=== PATIENT | male | born 1995 ===

== ENCOUNTER 2024-11-09 12:31 | Inpatient (IN) | payer OTHER ==
[2024-11-09 13:17] VITALS: BMI 29.5
[2024-11-09] MEDS ORDERED: BISMUTH SUBSALICYLATE 262 MG/15 ML BTL PO PRN (13:44)
[2024-11-09] MEDS ORDERED: BENZOCAINE/MENTHOL (CHLORASEPTIC ) LOZENGE MM PRN (13:44)
[2024-11-09] MEDS ORDERED: DICYCLOMINE HCL 10 MG CAPSULE PO PRN (13:44)
[2024-11-09] MEDS ORDERED: IBUPROFEN 600 MG TABLET (FP) PO PRN (13:44)
[2024-11-09] MEDS ORDERED: LOPERAMIDE HCL 2 MG CAPSULE PO PRN (13:44)
[2024-11-09] MEDS ORDERED: guaiFENesin 600 MG TABLET.ER (FP) PO PRN (13:44)
[2024-11-09] MEDS ORDERED: MAGNESIUM HYDROX 2400MG/30ML ORAL SUSPENSION 30 ML CUP PO PRN (13:44)
[2024-11-09] MEDS ORDERED: IBUPROFEN 400 MG TABLET (FP) PO PRN (13:44)
[2024-11-09] MEDS ORDERED: NALOXONE (NARCAN) HCL 4 MG/0.1 ML SPRAY NS PRN (13:44)
[2024-11-09] MEDS ORDERED: MAG HYDROX/AL HYDROX/SIMETH 30 ML UNIT-DOSE CUP PO PRN (13:44)
[2024-11-09] MEDS ORDERED: BENZONATATE 200 MG CAPSULE PO PRN (13:44)
[2024-11-09] MEDS ORDERED: ACETAMINOPHEN 325 MG TABLET (FP) PO PRN (13:44)
[2024-11-09] MEDS ORDERED: POLYETHYLENE GLYCOL (HEALTHYLAX) 3350 17 GM PACKET PO PRN (13:44)
[2024-11-09] MEDS ORDERED: LORazepam 1 MG TABLET PO PRN (13:51)
[2024-11-09] MEDS ORDERED: chlordiazePOXIDE HCL 25 MG CAPSULE PO PRN (14:03)
[2024-11-09] MEDS ORDERED: LORazepam 2 MG TABLET PO SCH (17:00)
[2024-11-09] MEDS: chlordiazePOXIDE HCL 25 MG CAPSULE PO SCH (17:47)
[2024-11-09] MEDS: NALTREXONE HCL 50 MG TABLET PO ONE (17:47)
[2024-11-09] MEDS: ONDANSETRON *ODT* 4 MG TABLET SL PRN (20:17)
[2024-11-09] MEDS: MELATONIN 5 MG TABLETS PO SCH (22:25)
[2024-11-09] MEDS: THIAMINE 100 MG TABLET PO SCH (22:25)
[2024-11-09] MEDS: hydrOXYzine PAMOATE 25 MG CAPSULE (FP) PO PRN (22:26)
[2024-11-09] MEDS: METHOCARBAMOL 500 MG TABLET PO PRN (22:26)
[2024-11-10] MEDS: PRENATAL VITAMINS W/ FOLIC ACID TABLET (FP) PO SCH (10:17)
[2024-11-10] MEDS: NALTREXONE HCL 50 MG TABLET PO SCH (10:17)
[2024-11-10 11:09] LABS: POTASSIUM 3.7 mmol/L (3.5-5.1)
[2024-11-10 11:10] LABS: HEMATOCRIT 42.1 % (35.4-49); HEMOGLOBIN 14.1 GM/dL (11.7-16.9); MCH 33.2 pg (25.7-33.7); MCHC 33.4 g/dl (32.0-35.9); MEAN CELL VOLUME 99.4 fl (80-96); MEAN PLT VOLUME 8.6 fl (7.5-11.1); PLATELET COUNT 305 10^3/uL (134-434); RBC 4.23 M/mm3 (4.00-5.60); RDW 14.3 % (11.9-15.9); WHITE BLOOD COUNT 10.8 K/mm3 (4.0-10.0)
[2024-11-10 11:12] LABS: CALCIUM 9.4 mg/dL (8.5-10.1)
[2024-11-10 11:13] LABS: ALBUMIN 4.5 g/dl (3.4-5.0); BLOOD UREA NITROGEN 8.5 mg/dL (7-18)
[2024-11-10 11:16] LABS: CREATININE 0.8 mg/dL (0.55-1.3)
[2024-11-10 11:17] LABS: BILIRUBIN,TOTAL 1.8 mg/dL (0.2-1); TOT PROT 8.2 g/dl (6.4-8.2)
[2024-11-10] MEDS: MELATONIN 5 MG TABLETS PO SCH (22:10)
[2024-11-11] MEDS ORDERED: LORazepam 1 MG TABLET PO SCH (05:00)
[2024-11-11] MEDS: chlordiazePOXIDE HCL 25 MG CAPSULE PO SCH (05:55)
[2024-11-12] MEDS ORDERED: LORazepam 0.5 MG TABLET PO PRN
[2024-11-12] MEDS ORDERED: chlordiazePOXIDE HCL 10 MG CAPSULE PO PRN
[2024-11-12] MEDS ORDERED: LORazepam 0.5 MG TABLET PO SCH (05:00)
[2024-11-12] MEDS: chlordiazePOXIDE HCL 10 MG CAPSULE PO SCH (05:50)
[2024-11-13] MEDS ORDERED: LORazepam 0.5 MG TABLET PO ONE (05:00)
[2024-11-13] MEDS: chlordiazePOXIDE HCL 10 MG CAPSULE PO SCH (05:48)
[2024-11-13 07:03] VITALS: TEMP 97.6
[2024-11-13 09:23] VITALS: BP 119/87; PULSE 90; RESP 18
[2024-11-14] MEDS ORDERED: chlordiazePOXIDE HCL 10 MG CAPSULE PO ONE (05:00)
== END 2024-11-13 11:20 | disposition home or self-care (01) | DRG 775 ==
LOC: YASAS 12:31 → Y6N 15:09
PROVIDERS: ADMIT Allergy & Immunology; ATTEND Allergy & Immunology
PROC: HZ2ZZZZ Detoxification Services for Substance Abuse Treatment (ICD-10-PCS; principal; 2024-11-09)
DX: F10.230 Alcohol dependence with withdrawal, uncomplicated (principal); F12.20 Cannabis dependence, uncomplicated; F19.282 Other psychoactive substance dependence with psychoactive substance-induced sleep disorder; F19.280 Other psychoactive substance dependence with psychoactive substance-induced anxiety disorder; F90.9 Attention-deficit hyperactivity disorder, unspecified type; Z87.891 Personal history of nicotine dependence; S82.91XD Unspecified fracture of right lower leg, subsequent encounter for closed fracture with routine healing; W19.XXXD Unspecified fall, subsequent encounter; Z91.81 History of falling; Z99.89 Dependence on other enabling machines and devices
CPT/HCPCS: 36415; 80053; 80305; 80307; 85027; 86780; 93005; 93010; Q0162